=== PATIENT | male | born 1995 ===

== ENCOUNTER 2024-08-17 10:46 | Emergency (ER) | payer OTHER, SELFPAY ==
[2024-08-17 10:51] VITALS: BP 173/108; PULSE 81; RESP 16; TEMP 36.7; O2SAT 97
[2024-08-17 11:06] LABS: Basophils # 0.1 10^3/uL (0.0-0.1); Basophils % 0.6 %; Eosinophils # 0.4 10^3/uL (0.0-0.8); Eosinophils % 3.6 %; Hematocrit 50.9 % (37-53); Lymphocytes # 3.8 10^3/uL (0.8-4.8); Lymphocytes % 38.1 %; Mean Corpuscular Hemoglobin 29.4 pg (27-33); Mean Corpuscular Volume 89.1 fl (82-101); Mean Platelet Volume 10.4 fL (7.4-10.4); Monocytes # 0.5 10^3/uL (0.2-0.9); Monocytes % 5.4 %; Neutrophils # 5.15 10^3/uL (1.8-7.7); Nucleated Red Blood Cells % 0 %; Platelet Count 324 10^3/cmm (157-399); Red Blood Count 5.71 10^6/uL (3.85-5.65); Red Cell Distribution Width 12.6 % (12.1-15.1); White Blood Count 9.92 10^3/uL (3.29-11.43)
--- NOTE | 2024-08-17 11:12 | USR_ITS ---
PROCEDURE INFORMATION: Exam: US Abdomen, Limited; Right Upper Quadrant Exam date and time: 08/17/2024 11:56 AM Age: 29 years old Clinical indication: Abdominal pain; Additional info: Ruq pain TECHNIQUE: Imaging protocol: Real time ultrasound of the abdomen with image documentation. Limited exam focused on the right upper quadrant. COMPARISON: No relevant prior studies available. FINDINGS: Liver: Echogenic, consistent with fatty infiltration. Gallbladder: Small nonshadowing stones versus polyps. No gallbladder wall thickening or pericholecystic fluid. Negative sonographic Saini's sign, as per the performing associate director qa. Biliary ducts: No stones. No ductal dilatation. Pancreas: Unremarkable as visualized. Right kidney: No mass. No definite stones. No hydronephrosis. US/US gall bladder [id number] IMPRESSION: 1. Small nonshadowing gallbladder stones versus polyps. No sonographic evidence of acute cholecystitis. 2. Fatty liver.
--- NOTE | 2024-08-17 11:13 | W.ED.ABDPA2 ---
HPI - Abdominal Pain General: Chief Complaint: Abdominal Pain Stated Complaint: abd pain Time Seen by Provider: 08/17/24 10:53 Source: patient Mode of arrival: ambulatory Limitations: no limitations History of Present Illness: 29-year-old male who states that he has been having some abdominal pain with eating over the last 2 to 3 days. States right upper quadrant pain was concerned he could be his gallbladder he denies any pain currently denies any fever denies any vomiting Associated Symptoms: Denies chills, diarrhea, fever(s), nausea and vomiting Related Data Previous Rx's Medication Instructions Recorded ondansetron 4 mg disintegrating 4 mg PO Q6H PRN nausea and 08/17/24 tablet vomiting #14 tabs Allergies Allergy/AdvReac Type Severity Reaction Status Date / Time No Known Allergies Allergy Verified 08/17/24 10:53 Review of Systems Const: Denies: fever(s), chills, body aches or change in appetite ENMT: Denies: throat pain or dental pain Card: Denies: chest pain Resp: Denies: dyspnea GI: Reports: abdominal pain; Denies: nausea, vomiting or diarrhea Musc: Denies: neck pain or back pain Skin/Breast: Denies: rash Neuro: Denies: headache(s) Physical Exam Const: COMMON NORMALS: no acute distress, patient oriented x3 and healthy appearing HENMT: COMMON NORMALS: normocephalic and atraumatic HEAD & SCALP: normocephalic and atraumatic Eye: COMMON NORMALS: conjunctivae normal CONJUNCTIVA: Yes conjunctivae normal Neck/C-Spine: COMMON NORMALS: full ROM and supple Chest: COMMONS NORMALS: normal inspection of the chest Resp: COMMON NORMALS: normal respiratory effort, No retractions, No use of accessory muscles and clear to auscultation bilaterally AUSCULTATION: clear to auscultation bilaterally Cardio: COMMON NORMALS: regular rate, regular rhythm and No murmurs present (Cardio) RATE: regular rate RHYTHM: regular rhythm GI: COMMON NORMALS: Normal to inspection, nondistended, normoactive bowel sounds present, Soft to palpation, non-tender and no masses PALPATION: Yes Soft to palpation Extremity: COMMON NORMALS: normal to inspection and full ROM Neuro: COMMON NORMALS: patient oriented x3, moves all extremities and no focal motor deficits Psych: COMMON NORMALS: mental status grossly normal, Normal thought process present and cooperative THOUGHT PROCESS: Normal thought process present Skin: COMMON NORMALS: no rashes or lesions noted and no wounds GENERAL SKIN EXAM: no rashes or lesions noted Course Vital Signs: Vital signs: Vital Signs Temperature 98.1 F 08/17/24 10:51 Pulse Rate 81 08/17/24 10:51 Respiratory Rate 16 08/17/24 10:51 Blood Pressure 173/108 08/17/24 10:51 Pulse Oximetry 97 08/17/24 10:51 Oxygen Delivery Me thod Room Air 08/17/24 10:51 MDM - Abdominal Pain Medical Decision Making Patient presents here with abdominal pain no pain currently exam here is benign no signs acute surgical abdomen ultrasound showed no signs of cholecystitis we will get him follow-up with surgery return if worsening. Medical Records I reviewed the patient's medical records. Lab Data I reviewed the patient's lab results. 08/17/24 11:00 08/17/24 11:00 Labs/Radiology: Laboratory Results WBC 9.92 10^3/uL (3.29-11.43) 08/17/24 11:00 RBC 5.71 10^6/uL (3.85-5.65) H 08/17/24 11:00 Hgb 16.80 g/dL (11.27-16.99) 08/17/24 11:00 Hct 50.9 % (37-53) 08/17/24 11:00 MCV 89.1 fl (82-101) 08/17/24 11:00 MCH 29.4 pg (27-33) 08/17/24 11:00 MCHC 33.0 g/dL (30-55) 08/17/24 11:00 RDW 12.6 % (12.1-15.1) 08/17/24 11:00 Plt Count 324 10^3/cmm (157-399) 08/17/24 11:00 MPV 10.4 fL (7.4-10.4) 08/17/24 11:00 Neut % (Auto) 52.0 % 08/17/24 11:00 Lymph % (Auto) 38.1 % 08/17/24 11:00 Gibson % (Auto) 5.4 % 08/17/24 11:00 Eos % (Auto) 3.6 % 08/17/24 11:00 Baso % (Auto) 0.6 % 08/17/24 11:00 Neut # (Auto) 5.15 10^3/uL (1.8-7.7) 08/17/24 11:00 Lymph # (Auto) 3.8 10^3/uL (0.8-4.8) 08/17/24 11:00 Gibson # (Auto) 0.5 10^3/uL (0.2-0.9) 08/17/24 11:00 Eos # (Auto) 0.4 10^3/uL (0.0-0.8) 08/17/24 11:00 Baso # (Auto) 0.1 10^3/uL (0.0-0.1) 08/17/24 11:00 Nucleated RBC % (auto) 0 % 08/17/24 11:00 Nucleated RBCs # 0.0 /100WBC 08/17/24 11:00 Sodium 138 mmol/L (136-145) 08/17/24 11:00 Potassium 3.9 mmol/L (3.5-5.1) 08/17/24 11:00 Chloride 101 mmol/L (98-107) 08/17/24 11:00 Carbon Dioxide 25 mmol/L (22-29) 08/17/24 11:00 Anion Gap 15.9 (5-19) 08/17/24 11:00 BUN 11 mg/dL (6-20) 08/17/24 11:00 Creatinine 0.7 mg/dL (0.7-1.2) 08/17/24 11:00 GFR Calculation 135.3 mL/min (90-130) H 08/17/24 11:00 Glucose 108 mg/dL (65-115) 08/17/24 11:00 Calculated Osmolality 286 mOsm/kg (285-295) 08/17/24 11:00 Calcium 9.8 mg/dL (8.5-10.5) 08/17/24 11:00 Total Bilirubin 0.9 mg/dL (0.15-1.2) 08/17/24 11:00 AST 28 U/L (0-40) 08/17/24 11:00 ALT 68 U/L (0-41) H 08/17/24 11:00 Alkaline Phosphatase 127 U/L (40-130) 08/17/24 11:00 Total Protein 7.7 g/dL (6.6-8.7) 08/17/24 11:00 Albumin 4.9 g/dL (3.5-5.2) 08/17/24 11:00 Globulin 2.8 g/dL (1.3-4.6) 08/17/24 11:00 Lipase 34 U/L (13-60) 08/17/24 11:00 All radiology interpretation(s) finalized by discharge Discharge Plan Discharge Patient Disposition: Home Clinical Impression: Abdominal pain Condition: Stable Prescriptions: New ondansetron 4 mg tablet,disintegrating 4 mg PO Q6H PRN (Reason: nausea and vomiting) Qty: 14 0RF Discharge Orders: Discharge ED (Routine); Ordered 08/17/24 Ordered By: Loren Puentes Referrals: Angel Ayala MD [Physician] - 4-7 days Discharge Diet: Advance as tolerated Discharge Activity: Resume usual activity Patient Instructions: Abdominal Pain (ED) Coding Level of Care Code ED [employer] Added Assessor for Cory Rosas
[2024-08-17 11:23] LABS: Alanine Aminotransferase 68 U/L (0-41); Albumin Level 4.9 g/dL (3.5-5.2); Alkaline Phosphatase 127 U/L (40-130); Anion Gap 15.9 (5-19); Aspartate Amino Transferase 28 U/L (0-40); Blood Urea Nitrogen 11 mg/dL (6-20); Calcium 9.8 mg/dL (8.5-10.5); Carbon Dioxide 25 mmol/L (22-29); Chloride 101 mmol/L (98-107); Creatinine Clr Calc Pharmacy 0.5605; Globulin 2.8 g/dL (1.3-4.6); Glomerular Filtration Rate 135.3 mL/min (90-130); Glucose 108 mg/dL (65-115); Lipase 34 U/L (13-60); Osmolality Calculated 286 mOsm/kg (285-295); Potassium 3.9 mmol/L (3.5-5.1); Sodium 138 mmol/L (136-145); Total Bilirubin 0.9 mg/dL (0.15-1.2); Total Protein 7.7 g/dL (6.6-8.7)
[2024-08-17 12:28] VITALS: BP 133/93; PULSE 67; O2SAT 97
[2024-08-17 12:30] VITALS: BP 133/93; PULSE 66; O2SAT 97
--- NOTE | 2024-08-18 08:55 | DCPLANNER ---
Messagesent to General surgery - abd pain
== END 2024-08-17 12:33 | disposition home or self-care (01) ==
PROVIDERS: Emergency Provider Emergency Medicine
DX: R10.11 Right upper quadrant pain (principal)
CPT/HCPCS: 36415; 76705; 80053; 83690; 85025; 99284

== ENCOUNTER 2024-08-28 07:04 | Day surgery (SDC) | payer OTHER, SELFPAY ==
[2024-08-28] VITALS (14 sets, daily range): BP systolic 136–163; BP diastolic 92–119; PULSE 70–99; RESP 16–24; TEMP 36.6–37; O2SAT 90–99; BMI 36.4
--- NOTE | 2024-08-28 07:10 | W.PM.OPSUD ---
Surgery/Procedure H&P Update DATE OF PROCEDURE: August 28, 2024 DATE H&P PERFORMED: 08/21/24 H&P UPDATE INFORMATION: I have reviewed H&P completed within last 30 days, I have examined patient prior to procedure and No changes to prior documentation PLANNED PROCEDURE: Operation Date: 08/28/24 07:00 Proposed Procedures p Laparoscopic Cholecystectomy 17488, K80.20(Not Applicable) - Magdiel Zayas,
--- NOTE | 2024-08-28 07:31 | ANES.PREANE2 ---
Pre-Anesthetic Assessment Height/Weight: Height 1.75 m Weight 112.037 kg Temp Pulse Resp BP Pulse Ox O2 Del Method 98.3 F 87 18 150/104 97 Room Air 08/28/24 07:19 08/28/24 07:19 08/28/24 07:19 08/28/24 07:19 08/28/24 07:19 08/28/24 07:19 Operation Date: 08/28/24 07:30 Proposed Procedures p Laparoscopic Cholecystectomy 73053, K80.20(Not Applicable) - Magdiel Zayas DO Familial anesthetic complications: None Was Beta Nuria taken within 24 hours: N/A Was Clonidine taken within 24 hours: N/A Last intake: Intake Last Liquid Date 08/27/24 Last Liquid Time 22:30 Last Solid Date 08/27/24 Last Solid Time 22:00 Social Tobacco and No alcohol Exam alert, oriented x 3, clear to auscultation bilaterally and regular rate & rhythm Airway Mallampati: Class IV Dentition: chipped GI Gastroesophageal Reflux Disease Anesthetic Plan ASA status: 2 Anesthesia: General Risk of > 500 ml blood loss (7ml/kg in children): No Medications/Allergies Home Medications Medication Instructions Recorded Confirmed Last Taken Type ondansetron 4 mg disintegrating 4 mg PO Q6H PRN nausea and 08/17/24 08/27/24 08/25/24 Rx tablet vomiting #14 tabs pantoprazole 40 mg tablet,delayed 40 mg PO BID 6 weeks #84 tabs 08/21/24 08/27/24 08/24/24 Rx release (Protonix) Allergies Allergy/AdvReac Type Severity Reaction Status Date / Time No Known Allergies Allergy Verified 08/27/24 12:17 COUNT INCLUDES THE [facility] Anesthesia Social History Smoking and tobacco/nicotine status: never used tobacco/nicotine Data Anesthesia Cardiac Studies: No Data to Display
[2024-08-28] MEDS: sodium chloride 0.9% 1,000 ML 30 ML IV (07:35)
[2024-08-28] MEDS: ceFAZolin 2,000 mg SDV 2000 MG IVP (07:48)
[2024-08-28] MEDS: lidocaine-epi 2% PF 1:200,000 20 mL SDV XX (08:14)
--- NOTE | 2024-08-28 08:23 | P.OP_ITS ---
Operative Report Date of procedure: August 28, 2024 Surgeon: Magdiel Zayas DO Brief History: This is a very pleasant 29-year-old gentleman came to my office with abdominal pain. He was diagnosed with symptomatic cholelithiasis. Laparoscopic cholecystectomy is indicated. The risks and benefits were explained and documented. Procedure: Preoperative diagnosis: Symptomatic cholelithiasis Postoperative diagnosis: Same Procedure performed: Laparoscopic cholecystectomy Surgeon: Dr. Magdiel Zayas DO Estimated blood loss: 5 mL Specimens: Gallbladder to pathology Complications: None apparent Description of procedure: Patient was wheeled into the operative room and placed on the OR table in a supine position. Abdomen was inspected prepped and draped in usual sterile fas hion. Time-out was performed and all present were in agreement. A 15 blade scalp was used to make a stab incision in the left upper quadrant and intra- abdominal insufflation was achieved using a Veress needle. After localizing the tissue incisions were made and a 5 millimeter trocar was placed into the umbilicus as well as 2 in the right upper quadrant. A 12 millimeter trocar was placed in the epigastrium. Gallbladder was grasped and elevated. The triangle of Calot was carefully dissected using blunt dissection and electrocautery until the triangle of Calot clearly identified. The cystic duct was clipped proximally and double clipped distally. The duct was then ligated proximally. The cystic artery was doubly clipped and ligated. The gallbladder was then removed from the liver bed using electrocautery. The gallbladder was removed from the abdomen using an Endo-Catch bag through the epigastric incision. The liver bed was inspected and no bleeding was seen. The abdomen was irrigated and suctioned. All ports removed. Skin was washed and dried. Incisions were closed with 4-0 Monocryl in a subcuticular interrupted fashion. Skin glue was applied. Patient tolerated the procedure well.
[2024-08-28] MEDS: fentaNYL 50 mcg/mL INJ 2mL IVP (09:10)
[2024-08-28] MEDS: labetalol 5 mg/mL SDV 20mL 100 MG (09:36)
[2024-08-28] MEDS: HYDROcodone-acetaminophen 7.5-325 mg Tablet 1 TAB PO (10:30)
--- NOTE | 2024-08-28 10:40 | ANE.PACU2 ---
Inpatient post-anesthesia follow up: Airway intact: Yes Vital signs: Temperature 97.8 F Pulse Rate 70 Respiratory Rate 17 Blood Pressure 138/100 Pulse Oximetry 98 Oxygen Delivery Me thod Nasal Cannula Oxygen Flow Rate 2 Fraction of Inspir ed Oxygen Hydration adequate: Yes Nausea and vomiting: No Pain level: 1 Mental status: Baseline
== END 2024-08-28 10:42 | disposition home or self-care (01) ==
PROVIDERS: PCP Family Medicine; Visit Provider Surgery
PROC: 0FT44ZZ Resection of Gallbladder, Percutaneous Endoscopic Approach (ICD-10-PCS; CPT 47562; principal; 2024-08-28 07:30)
DX: K80.10 Calculus of gallbladder with chronic cholecystitis without obstruction (principal); K21.9 Gastro-esophageal reflux disease without esophagitis; K92.0 Hematemesis; Z79.899 Other long term (current) drug therapy
CPT/HCPCS: 47562; 88304; A4216; J0131; J0690; J1100; J1171; J1885; J2250; J2405; J2704; J3010; J3490; J7030

== ENCOUNTER 2024-10-01 08:13 | Day surgery (SDC) | payer OTHER, SELFPAY ==
[2024-10-01 08:29] VITALS: BP 132/86; PULSE 86; RESP 18; TEMP 36.1; O2SAT 97; BMI 36.9
[2024-10-01] MEDS: sodium chloride 0.9% 1,000 ML 30 ML IV (08:51)
--- NOTE | 2024-10-01 09:17 | ANES.PREANE2 ---
Pre-Anesthetic Assessment Height/Weight: Height 5 ft 9 in Weight 250 lb Temp Pulse Resp BP Pulse Ox O2 Del Method 97 F L 86 18 132/86 97 Room Air 10/01/24 08:29 10/01/24 08:29 10/01/24 08:29 10/01/24 08:29 10/01/24 08:29 10/01/24 08:29 Preop Diagnosis: Abdominal pain Operation Date: 10/01/24 09:00 Proposed Procedures p EGD 90374, 03040, G0105, R10.9, K52.9, K92.2, K21.9(Not Applicable) - Magdiel Zayas DO s Colonoscopy(Not Applicable) - Magdiel Zayas DO Was Beta Nuria taken within 24 hours: N/A Last intake: Intake Last Liquid Date 09/30/24 Last Liquid Time 23:33 Last Solid Date 09/29/24 Last Solid Time 23:00 Social No alcohol and No tobacco Smokes marijuana Exam alert, oriented x 3, clear to auscultation bilaterally and regular rate & rhythm Airway Submandibular: within normal limits Cervical ROM: within normal limits Mallampati: Class II Dentition: full Anesthetic Plan ASA status: 2 Anesthesia: MAC Other: No prior issues with anesthesia NPO since yesterday Patient was recently with us for a cholecystectomy and did well States he is still having abdominal pain GERD on Protonix Smokes marijuana METs greater than 4 Plan for MAC anesthesia Medications/Allergies Home Medications ?Medication ?Instructions ?Recorded ?Confirmed ?Last Taken ?Type pantoprazole 40 mg tablet,delayed 40 mg PO BID 6 weeks #84 tabs 09/25/24 10/01/24 09/29/24 Rx release (Protonix) Allergies Allergy/AdvReac Type Severity Reaction Status Date / Time No Known Allergies Allergy Verified 09/30/24 11:11 Current Medications Generic Name Dose Route Start Last Admin Trade Name Freq PRN Reason Stop Dose Admin Sodium Chloride 1,000 mls @ 30 mls/hr 10/01/24 08:45 10/01/24 08:51 Sodium Chloride 0.9% IV 30 mls/hr .Q24H CAROLIN Administration PFSH Anesthesia Surgical History (Updated 09/25/24 @ 10:07 by Magdiel Zayas DO) History of laparoscopic cholecystectomy Social History Smoking and tobacco/nicotine status: never used tobacco/nicotine Data Anesthesia Cardiac Studies: No Data to Display
--- NOTE | 2024-10-01 09:31 | W.PM.OPSUD ---
Surgery/Procedure H&P Update DATE OF PROCEDURE: October 01, 2024 DATE H&P PERFORMED: 09/25/24 H&P UPDATE INFORMATION: I have reviewed H&P completed within last 30 days, I have examined patient prior to procedure and No changes to prior documentation PREOP DIAGNOSIS: Abdominal pain PLANNED PROCEDURE: Operation Date: 10/01/24 09:00 Proposed Procedures p EGD 34340, 74664, G0105, R10.9, K52.9, K92.2, K21.9(Not Applicable) - DO gorge Smith Colonoscopy(Not Applicable) - Magdiel Zayas DO
[2024-10-01 09:54] VITALS: BP 109/83; PULSE 95; RESP 16; TEMP 36.1; O2SAT 96
[2024-10-01 10:07] VITALS: BP 118/81; PULSE 84; RESP 18; O2SAT 99
[2024-10-01 10:18] VITALS: BP 119/75; PULSE 90; RESP 18; O2SAT 98
--- NOTE | 2024-10-01 10:32 | ANE.PACU2 ---
Inpatient post-anesthesia follow up: Airway intact: Yes Vital signs: Temperature 97 F Pulse Rate 90 Respiratory Rate 18 Blood Pressure 119/75 Pulse Oximetry 98 Oxygen Delivery Me thod Room Air Oxygen Flow Rate Fraction of Inspir ed Oxygen Hydration adequate: Yes Nausea and vomiting: No Pain level: 1 Mental status: Baseline
[2024-10-01 11:25] LABS: C.Diff PCR (Lab) NEGATIVE (Negative)
[2024-10-03 15:45] LABS: Beef (27) IgE <0.10 kU/L; Beef Class 0; Lamb (F88) IgE <0.10 kU/L; Lamb Class 0; Pork (F26) IgE <0.10 kU/L; Pork Class 0
[2024-10-06 18:05] LABS: Galactose-alpha-1,3 IgE <0.10 kU/L (<0.10)
== END 2024-10-01 10:32 | disposition home or self-care (01) ==
PROVIDERS: PCP Family Medicine; Visit Provider Surgery
PROC: 0DJ08ZZ Inspection of Upper Intestinal Tract, Via Natural or Artificial Opening Endoscopic (ICD-10-PCS; principal; 2024-10-01 09:00)
PROC: 0DJD8ZZ Inspection of Lower Intestinal Tract, Via Natural or Artificial Opening Endoscopic (ICD-10-PCS; CPT 45378; 2024-10-01 09:00)
DX: K52.9 Noninfective gastroenteritis and colitis, unspecified (principal); K21.9 Gastro-esophageal reflux disease without esophagitis; Z79.899 Other long term (current) drug therapy; Z90.49 Acquired absence of other specified parts of digestive tract
CPT/HCPCS: 36415; 43239; 45380; 45385; 82274; 83630; 86003; 86008; 87045; 87177; 87209; 87427; 87449; 87493; 88305; J2250; J2704; J3490; J7030

== ENCOUNTER 2025-03-02 11:11 | Outpatient (CLI) | payer OTHER, SELFPAY ==
--- NOTE | 2025-03-02 11:19 | XR_ITS ---
WS: [id number] XR tibia fibula LT 2V [id number] REASON FOR EXAM: PAIN IN LEFT LOWER LEG FINDINGS: No fracture. Possible small osteochondroma (benign) of the proximal lateral tibia. No periosteal reaction. No radiopaque soft tissue foreign body. XR/XR tibia fibula LT 2V [id number] IMPRESSION: No acute abnormality.
--- NOTE | 2025-03-02 11:19 | XR_ITS ---
WS: [id number] XR ankle LT min 3V* [id number] REASON FOR EXAM: ANKLE PAIN LEFT FINDINGS: No fracture or focal bone lesion. Joint spaces of the ankle are intact and well preserved. No radiopaque soft tissue foreign body. XR/XR ankle LT min 3V* [id number] IMPRESSION: No significant bone or joint abnormality.
== END 2025-03-02 11:12 | disposition home or self-care (01) ==
PROVIDERS: PCP Family Medicine; Visit Provider Family Medicine
DX: M25.572 Pain in left ankle and joints of left foot (principal); M79.662 Pain in left lower leg
CPT/HCPCS: 73590; 73610